=== PATIENT | female | born 1940 | race Caucasian/White ===

== ENCOUNTER 2017-02-16 06:40 | Observation (INO) | payer MEDICARE, OTHER ==
[~2017-02-16] VITALS: Ht 160 cm; Wt 54.2 kg
--- NOTE | ~2017-02-16 | ECHO ---
Transthoracic Echocardiography Report (TTE) Demographics Patient Name MARGO JAIN Date of Study 02/16/2017 A Patient Number [id number] Visit Number [id number] Date of 1940 Room Number G6336 Gender Female Number Age 76 year(s) Referring Josh Yuen MD Revenue Cycle Specialist Hattie Brumfield RD, Physician RVT, RDMS, OPERATIONS MANAGER Physician Interpreting Leana Michaels MD [employer] Physician Supervising Ordering Carlita Pompa MD, MD/MLP Physician Nurse Stress Manager [employer] Conclusions Contractility Score Summary Normal Left Ventricular contractility was noted. Summary The estimated left ventricular ejection fraction is 55-60%. Normal left ventricular chamber size, wall thickness and systolic function. No discernable wall motion abnormalities. Diastolic assessment reveals Grade II pseudonormal diastolic function . Mildly dilated RV with normal RV systolic function. Mild LA enlargement. Moderate RA enlargement. Moderate degenerative changes of the MV. Mild mitral regurgitation by color Doppler. The aortic valve is mildly sclerotic. Mild to moderate tricuspid regurgitation by color Doppler. There is mild pulmonary hypertension. The pulmonary pressure (RVSP) is 42 mmHg. Procedure Type of Study TTE procedure:2D Echocardiogram, M-Mode, Doppler , Color Doppler. Procedure Date Date: 02/16/2017 Start: 10:50 AM Study Location: ER Technical Quality: Good visualization Additional Indications:Chest Pain Appropriate Use Criteria: 9 Patient Status: STAT Rhythm: NSR HR: 75 bpm BP: 114/54 mmHg M-Mode/2D Measurements LV Diastolic Dimension: 3.86 cm LV Systolic Dimension: 2.31 cm LV Septum Diastolic: 0.9 cm LV PW Diastolic: 0.86 cm AO Root Dimension: 2.8 cm AV Cusp Separation: 1.9 cm RV Diastolic Dimension: 2.97 cm LA Dimension: 2.8 cm EF Estimated: 60 % LA volume: 57 ml RV Base: 3.9 cm LVOT: 2 cm RV Mid: 2.9 cm RV Length: 4.6 cm TAPSE: 3 cm TDI-S': 14 cm/s Doppler Measurements AV Peak Velocity: 1.38 m/s MV Peak E-Wave: 0.94 m/s AV Peak Gradient: 7.62 mmHg MV Peak A-Wave: 0.74 m/s LVOT Peak Velocity: 0.91 m/s MV E/A Ratio: 1.27 MV P1/2t: 73 msec TR Velocity:2.88 m/s TR Gradient:33.18 mmHg Estimated RVSP: 48 mmHg PV Peak Velocity: 0.64 m/s E' Septal Velocity: 0.09 m/s PV Peak Gradient: 1.63 mmHg E' Lateral Velocity: 0.09 m/s Estimated PASP: 48.18 mmHg A' Septal Velocity: 0.07 m/s Findings Left Ventricle Normal left ventricular chamber size, wall thickness and systolic function. No discernable wall motion abnormalities. Diastolic assessment reveals Grade II pseudonormal diastolic function . Right Ventricle Mildly dilated RV with normal RV systolic function. Left Atrium The left atrium is mildly dilated by LA volume index measurement. Right Atrium The right atrium is moderatetely dilated. There is a prominent Eustachian valve seen in the right atrium. Normal hepatic venous flow. IVC is plethoric, measures 1.7 cms, no inspiratory collapse. Mitral Valve Moderate degenerative changes of the MV. Minimal prolapse of the posterior leaflet of the MV. Mild mitral regurgitation by color Doppler. Aortic Valve The aortic valve is mildly sclerotic. Focal calcification of the left coronary cusp. There is no aortic regurgitation by color Doppler. Tricuspid Valve Mild to moderate tricuspid regurgitation by color Doppler. There is mild pulmonary hypertension. The pulmonary pressure (RVSP) is 15 mmHg. Pulmonic Valve The pulmonic valve is not well visualized. Mild PI. Pericardial Effusion Trivial posterior pericardial effusion. There is no echocardiographic evidence of cardiac tamponade. Miscellaneous Visualized portions of the aortic root and ascending aorta appear normal in size. Pleural Effusion No evidence of pleural effusion. Contractility Score LV regional wall motion:(0-Non visualized 1-Normal 2-Hypokinesis 3-Akinesis 4-Dyskinesis 5-Aneurysm) Signature dtt: PEDRO DENNY dtd: 02/16/17 1050 Physician Self Edit
--- NOTE | ~2017-02-16 | ER ---
PATIENT'S NAME: MARGO JAIN [facility] AGE: 76 Y [address] ROOM: [place] [address] LOCATION: GPCU ADMIT DATE: 02/16/2017 ER/Outpatient Report DISCHARGE DATE: FAMILY PHYSICIAN: Emily Moreno MD ATTENDING PHYSICIAN: ANA ROSA KOEHLER CHIEF COMPLAINT: Chest pain. HISTORY OF PRESENT ILLNESS: Ms. Jain reports that she woke up this morning not feeling well with some pressure in her chest that radiates through to her back. Maximal intensity she described it as a 4 or 5/10. The symptoms are dull. She has some associated subjective shortness of breath. She denies any history of high blood pressure, diabetes, or smoking. She has no former heart history. She takes medication for her thyroid. She states she is otherwise healthy. The patient has taken some aspirin this morning, 4 baby aspirin to be exact, prior to arrival. PAST MEDICAL HISTORY: Documented on the record and reviewed by me. SOCIAL HISTORY: Documented on the record and reviewed by me. MEDICATIONS: Documented on the record and reviewed by me. ALLERGIES: DOCUMENTED ON THE RECORD AND REVIEWED BY ME. REVIEW OF SYSTEMS: All systems are reviewed and negative except as noted in the HPI. PHYSICAL EXAMINATION: VITAL SIGNS: Blood pressure 146/67, pulse 70, respiratory rate is 20, temperature 97.8, SpO2 is 97% on room air. Pain is rated at 5/10. GENERAL: Age-appropriate female, elderly, and overall good appearance. Awake and alert. NEUROLOGIC: Awake and alert. GCS is 15. No focal deficits. No asymmetry. HEENT: Normocephalic, atraumatic. Eyes are PERRL. The oropharynx is clear. NECK: Supple. Trachea is midline. CHEST: Heart is regular rate and rhythm with no murmurs. LUNGS: Clear to auscultation bilaterally with no rhonchi, wheezes, or rales. PATIENT'S NAME: MARGO JAIN [facility] AGE: 76 Y [address] ROOM: [place] [address] LOCATION: GPCU ADMIT DATE: 02/16/2017 ER/Outpatient Report DISCHARGE DATE: FAMILY PHYSICIAN: Emily Moreno MD ATTENDING PHYSICIAN: ANA ROSA KOEHLER ABDOMEN: Soft, nontender, and nondistended. No rebound or guarding. BACK: Normal to inspection and palpation. No CVA tenderness. No spinal or paraspinal tenderness. EXTREMITIES: Warm and well perfused with no deformities or edema. SKIN: Clean, dry, and intact. No rashes or bruising. LABS AND X-RAYS: Chest x-ray with no acute findings per my review. No pneumothorax or infiltrates. EKG: Initial and repeat EKGs are all stable. No EKGs from prior to today for comparison. There is slight ST-segment elevation in V2 and III, not meeting criteria with no reciprocal changes. Very minimal ST-segment changes in the lateral leads on serial EKG. Initial and repeat troponin were obtained and are not elevated. Second CK-MB is slightly elevated from initial from 1.1 to 1.2. CBC with no other appreciable abnormalities. INR is less than 1. CMS with no appreciable abnormalities other than renal function with a creatinine of 1.2 and GFR of 44. Echocardiogram was done in the ER. IMPRESSION: Chest pain, requiring rule out. EMERGENCY DEPARTMENT COURSE: The patient was seen and evaluated as above. She received aspirin prior to arrival. She remained, otherwise, stable in the ER. GI cocktail may have helped some, though I believe the patient is minimizing to an extent. She was given 0.2 mg of nitroglycerin and that dropped her pressure and may or may not have helped her feel better. She remained stable and was given 2 mg of morphine which dropped her pressure more, but she felt like her chest pain got a lot better, but she stated it was still present. She was initiated with volume resuscitation. She was, otherwise, doing okay. Normal saline was given at 500 mL an hour which did improve her blood pressures. The patient did not have any side effects from the low blood pressure and her chest pain felt better. In any case, I felt as though Ms. Jain requires further definitive rule out. I discussed the case with Dr. Coon, assistant toddler teacher. She requested echo, repeat EKG and enzymes for the third time. The patient will be admitted to the Hospitalist Service under Dr. Koehler for further evaluation and treatment. Please see their dictations for their impressions and evaluation. PATIENT'S NAME: MARGO JAIN [facility] AGE: 76 Y [address] ROOM: G6336 [place] [address] [facility] ADMIT DATE: 02/16/2017 ER/Outpatient Report DISCHARGE DATE: FAMILY PHYSICIAN: Emily Moreno MD ATTENDING PHYSICIAN: ANA ROSA KOEHLER MD MARYLOU REINA/rejil /[id number] d: 02/16/172000 t: 02/22/17 0633, OUTPATIENT REPORT
--- NOTE | ~2017-02-16 | ESTC ---
Cardiac Perfusion Imaging Demographics Patient Name CRISTOBAL Rosenbaum Gender Female Patient Number [id number] Race Visit Number [id number] Ethnicity Corporate ID Room Number G6336 Accession Number [id number] Height 63 inches Date of 1940 Weight 117 pounds Leana Devries PRINT BUYER Interpreting Leana Michaels Date of study 02/17/2017 Physician Supervising /SEANP Leana Michaels NM Technologist Jakob Pelayo MD Ordering Physician Leana Michaels Stress forensic science technician Stress ECG Reading Leana Michaels Nurse Oskar Barlow Physician MD DANNIE Paz The procedure was explained in detail to the patient. Risks, complications and alternative treatments were reviewed. Written consent was obtained. Medications Reviewed with Patient prior to Procedure. Procedure Procedure Type: Nuclear Stress Test:Exercise, Cardiolite Stress Test Procedure Start time: 02/17/2017 08:30 Indications: Chest pain. Conclusions Summary Perfusion Images: The overall quality of the study is good. Left ventricular cavity is noted to be normal on the stress and normal on the rest images. There is no evidence of abnormal lung activity. The right ventricle is not visualized an cannot be assessed. Impression ECG portion of exercise stress test is clinically negative for ischemia by diagnostic criteria. The Lester Treadmill Score was 8. This corresponds to a low risk stress test. Myocardial perfusion imaging is essentially normal. Overall left ventricular systolic function was normal without regional wall motion abnormalities. Calculated LVEF is 80% and TID ratio is 1.2. There are no previous studies for comparison. Stress Protocols Resting ECG Normal sinus rhythm. Resting HR:77 bpm Resting BP:110/52 mmHg Pre-stress physical exam: Patient assessed by Dr. Coon prior to testing. Stress Protocol:Exercise Peak HR:125 bpm HR response: Appropriate Peak BP:138/58 mmHg BP response: Appropriate Predicted HR: 143 bpm HR/BP product:06604 % of predicted HR: 87 Test duration:08:06 min Reason for termination:Dyspnea Exercise effort:Good ECG Findings No ECG changes suggestive of ischemia. Arrhythmias No rhythm abnormality. Symptoms Shortness of breath. Stress Interpretation The electrocardiographic portion of the stress test was negative for ischemia. Blood pressure response was normal, heart rate response was normal for exertion. The Lester Treadmill Score was 8. This corresponds to a low risk stress test. Imaging Results Applied corrections - Motion correction applied High risk findings Summed scores - Summed stress score: 13 - Summed rest score: 8 - Summed difference score: 5 Stress ejection Ejection fraction:80 % EDV :65 ml ESV :13 ml Stroke volume :52 ml LV mass :94 gr Imaging Protocols Rest Stress Isotope:Tc99m Sestamibi IV Isotope: Tc99m Sestamibi IV Isotope dose:10.8 mCi Isotope dose:34.4 mCi Date:02/17/2017 06:59 Date:02/17/2017 08:37 Technique: SPECT Technique: Gated Supine SPECT Supine IV remains in place after procedure. Scan Time:45-60 minutes post Scan Time:45-60 minutes post injection injection Medical History Admission Data Admission date: 02/16/2017 Admission Time: 10:48 Hospital Status: Inpatient. Signatures dtt: PEDRO DENNY dtd: 02/17/17 0830 Physician Self Edit
--- NOTE | ~2017-02-16 | CON ---
PATIENT'S NAME: MARGO JAIN [facility] AGE: 76 Y [address] ROOM: [place] [address] LOCATION: GPCU ADMIT DATE: 02/16/2017 Consultation DISCHARGE DATE: FAMILY PHYSICIAN: Emily Moreno MD ATTENDING PHYSICIAN: ANA ROSA LEIJA DATE OF CONSULTATION: 02/16/2017 REQUESTING PROVIDER: Dr. Zazueta. REASON FOR CONSULTATION: Chest discomfort. HISTORY OF PRESENTING ILLNESS: The patient is a very pleasant 76-year-old female who is relatively healthy. Her only history is hypothyroidism. She also reports that she does not have any prior coronary artery disease or valve issues. The patient woke up at 5:30 a.m. with chest pain that was radiating to her left arm as well as her left jaw. This was persistent, and it was about 5 on a pain scale. The patient finally decided to come to the emergency room. She received 2 sublingual nitroglycerin that really did not help her chest pain much. She also got a GI cocktail that did not relieve her pain. However, morphine did help with her symptoms. She reports that on the worst intensity, it was 5 on the pain scale, and the pain did go to her arm as well as the left jaw. She does not report doing any physical exertion recently or straining her muscles. She is quite active usually and plays tennis, and she reports no significant complaints with exertion. She does not have any symptoms suggestive of sleep apnea. She does not have any symptoms of daytime fatigue, headache, daytime somnolence, snoring or apneic episodes. She does not have any dyspnea on exertion. No lower extremity edema, PND, or orthopnea. She does wake up in the middle of the night twice to urinate; however, she reports she gets good rest at night and able to go back to sleep. No stroke-like symptoms. The patient reports having a dull ache in her chest, and during interview, the chest pressure is gone; however, she does have minimal twinge in her back. REVIEW OF SYSTEMS: All review of systems discussed with the patient. Pertinent positives and PATIENT'S NAME: MARGO JAIN [facility] AGE: 76 Y [address] ROOM: [place] [address] LOCATION: GPCU ADMIT DATE: 02/16/2017 Consultation DISCHARGE DATE: FAMILY PHYSICIAN: Emily Moreno MD ATTENDING PHYSICIAN: ANA ROSA LEIJA negatives mentioned in the History of Presenting Illness. PAST MEDICAL HISTORY: Hypothyroidism. PAST SURGICAL HISTORY: Back surgery. SOCIAL HISTORY: The patient does not smoke. No alcohol or illicit drug abuse. FAMILY HISTORY: No premature coronary artery disease or sudden cardiac . HOME MEDICATIONS: She is on: 1. Synthroid, dose is not known. 2. Vitamin D. 3. Calcium. PHYSICAL EXAMINATION: VITAL SIGNS: Blood pressure 130/70, weight is 53 kg, pulse is 70s, respirations 14, afebrile, and O2 saturations are 97% on room air. GENERAL: The patient is alert and oriented, not in any apparent distress. HEENT: Head: Atraumatic. Eyes: Sclerae are white. No xanthelasmas. Mucous membranes moist. NECK: No JVD. HEART: S1 and S2. Regular rate and rhythm. No murmurs, gallops, or rubs. LUNGS: Clear to auscultation bilaterally. ABDOMEN: Soft. Bowel sounds positive. EXTREMITIES: No lower extremity edema or tenderness. MUSCULOSKELETAL: Good range of motion. Gait normal. SKIN: Warm and dry. LABORATORY DATA: Sodium 141, potassium 4, chloride 108, CO2 of 27, glucose 86, BUN 23, and creatinine 1.2. AST is 18 and ALT 18. GFR is 44. Magnesium 2.2. Three sets of cardiac isoenzymes are negative. CPK 38, CK-MB 0.8, and troponin less than 0.040. Hematology: WBC 7.6, H and H of 12.5 and 39, and platelets are 171. Echocardiogram: Grossly normal LV size and systolic function. Mild pulmonary hypertension. No significant valvular disease. PATIENT'S NAME: MARGO JAIN [facility] AGE: 76 Y [address] ROOM: [place] [address] LOCATION: GPCU ADMIT DATE: 02/16/2017 Consultation DISCHARGE DATE: FAMILY PHYSICIAN: Emily Moreno MD ATTENDING PHYSICIAN: ANA ROSA LEIJA EKG: Normal sinus rhythm. No ST changes on serial EKGs suggestive of ischemia or injury pattern. IMPRESSION AND PLAN: 1. Chest pain with atypical and typical features in a 76-year-old female concerning that her CP radiates to the jaw as well as left arm. Three sets of cardiac enzymes are negative. ECG w/out e/o ischemia. 2. Hypothyroidism. Continue home dose of Synthroid. 3. Mild pulmonary hypertension. She does not have any significant pulmonary issues. Chest x-ray grossly normal. There is no evidence of sleep apnea. Continue to monitor. 4. Renal insufficiency with a GFR of 44. Cautious IV hydration, and reassess renal function in the a.m. Unsure what her baseline creatinine is. At this time, given her typical and atypical features in the absence of ischemia on serial ECGs or troponins, I think the best option at this time is to proceed with non invasive ischemic workup given her age as well as being female and presence of typical features with the cp radiating to the arm and the jaw. We will get an exercise nuclear stress test. We will have her walk on the treadmill and evaluate her functional capacity and METS and risk stratify her. We will also get a fasting lipid profile in the morning and see if she needs to be on a statin. Thank you very much for allowing us to participate in the care of Mrs. Jain. PEDRO DENNY MD AT/modl /[id number] d: 02/16/17 182 t: 02/18/17 0902, CONSULTATION REPORT
--- NOTE | ~2017-02-16 | HP ---
PATIENT'S NAME: MARGO JAIN [facility] AGE: 76 Y [address] ROOM: [address] [address] LOCATION: GPCU ADMIT DATE: 02/16/2017 History & Physical DISCHARGE DATE: FAMILY PHYSICIAN: Emily Moreno MD ATTENDING PHYSICIAN: ANA ROSA LEIJA DATE OF SERVICE: 02/16/2017 CHIEF COMPLAINT: Chest pain. HISTORY OF PRESENT ILLNESS: This is a very pleasant 76-year-old female, who follows with Dr. Moreno with minimal past medical history, including only hypothyroidism, who takes Synthroid as well as calcium and vitamin D supplementation as her only home medications. The patient noted last evening, onset of generalized headache, not out of the usual types of headaches that she will have from time to time; however, this morning around 0530 hours, she did develop onset of chest pain which is across the tops of her shoulders bilaterally radiating across her back, described as achy and with associated left-sided jaw pain. She denies any recent diaphoresis, fevers, chills, nausea, vomiting, shortness of breath, abdominal pain, bowel or bladder concerns, or leg swelling. She is a very active 76-year-old female, plays tennis frequently, and only endorses occasional muscle cramps, but never anything involving her shoulders as such. She denies any recent strenuous activity that may have led to her current condition. In the emergency department, the patient was seen and evaluated, treated with GI cocktail as well as nitroglycerin with minimal improvement. Subsequently, she was given morphine with modest improvement in pain though pain remains persistent. Initial troponins were negative on two occasions. Third troponin will be collected shortly. EKGs are without ischemic changes. D- dimer has been negative at 0.32. Chest x-ray shows no acute findings and labs are otherwise largely unremarkable including CBC and CMP. PAST MEDICAL HISTORY: 1. Hypothyroidism. 2. Vitamin D deficiency. PAST SURGICAL HISTORY: Reviewed, no contributing history noted. FAMILY HISTORY: Mom had "thyroid problems." Daughter has type 1 diabetes. SOCIAL HISTORY: The patient is a nonsmoker and nondrinker. PATIENT'S NAME: MARGO JAIN [facility] AGE: 76 Y [address] [address] [address] [facility] AD[facility] DATE: 02/16/2017 History & Physical DISCHARGE DATE: FAMILY PHYSICIAN: Emily Moreno MD ATTENDING PHYSICIAN: ANA ROSA LEIJA ALLERGIES: NO KNOWN DRUG ALLERGIES. MEDICATIONS: Only notable for Synthroid, vitamin D, and calcium. REVIEW OF SYSTEMS: Complete review of systems was performed and negative except as noted above in the HPI. PHYSICAL EXAMINATION: VITAL SIGNS: Temperature 97.8, pulse is 70, respiratory rate is 20, blood pressure 146/67, and saturating well on room air. GENERAL: The patient is a very pleasant, elderly female, in no acute distress. Sitting comfortably in bed in the emergency department. HEENT: Head; normocephalic and atraumatic. Eyes; pupils equal, round, and reactive to light and accommodation. Extraocular muscles intact. No conjunctival injection or scleral icterus appreciated. Nose without rhinorrhea or other discharge. Mouth with moist mucous membranes. No lesions appreciated. NECK: Supple. No thyromegaly. No lymphadenopathy. No JVD or carotid bruit. The superior aspect of trapezius is nontender on palpation overlying the area of the described pain. CARDIOVASCULAR: Regular rate and rhythm with frequent extrasystoles consistent with premature atrial beats on telemetry. No murmurs, rubs, or gallops appreciated, 2+ pulses bilaterally in radial and dorsalis pedis. LUNGS: Respirations are clear to auscultation bilaterally. Normal effort, saturating well on room air. ABDOMEN: Soft, nontender, and nondistended. Normoactive bowel sounds. EXTREMITIES: No edema. No lesions noted on exposed skin. NEUROLOGIC: Alert and oriented, pleasant, cooperative, and voluntary movements of all limbs and normal strength bilaterally. LABORATORY DATA AND IMAGING STUDIES: CBC with white count of 7.6, hemoglobin 12.5, and platelets 171,000. CMP; sodium 141, potassium 4.0, chloride 108, bicarbonate 27, BUN 23, creatinine 1.2, glucose 86, and calcium 8.7. LFTs normal. Magnesium 2.2. D-dimer is negative at 0.32. Troponins are less than 0.04 x2. Chest x-ray with no acute findings. EKG shows no ischemic changes. ASSESSMENT: 1. Chest pain. Concerning for cardiac etiology versus musculoskeletal. We will admit to observation to complete trend of cardiac enzymes as symptoms have been present now for only approximately 5-1/2 hours. We will follow up echocardiogram and Cardiology recommendations as Dr. Coon PATIENT'S NAME: MARGO JAIN [facility] AGE: 76 Y [address] ROOM: [address] [place], [place] [address] [facility] AD[facility] DATE: 02/16/2017 History & Physical DISCHARGE DATE: FAMILY PHYSICIAN: Emily Moreno MD ATTENDING PHYSICIAN: ANA ROSA LEIJA was contacted by emergency department. We will treat supportively for pain with Tylenol as this may indeed represent musculoskeletal pain. However, it is atypical in that it is nontender to palpation and did involve radiation to the jaw prompting concern for cardiac etiology. The patient may warrant a stress test but will follow pending ongoing workup. 2. Probable mild acute kidney injury with creatinine of 1.2, though baseline uncertain, we will gently rehydrate with saline at 75 mL an hour, and recheck BMP in a.m. 3. Hypothyroidism. We will continue home Synthroid. No subjective evidence of over or under-replacement currently. 4. Vitamin D deficiency. We will continue home vitamin D and calcium. 5. Deep venous thrombosis prophylaxis. Heparin 5000 units subcutaneous t.i.d. 6. Code Status: The patient is a full code. Time spent on date of admission including [id number] evaluation of the patient and review of records was 25 minutes. MD MARIBEL MADDEN/aamir /[id number] D: [id number] T: [id number] HISTORY & PHYSICAL
--- NOTE | ~2017-02-16 | DS ---
PATIENT'S NAME: MARGO [facility]AIN [facility] AGE: 76 Y [address] ROOM: [address] [place], [place] [address] LOCATION: GPCU ADMIT DATE: 02/16/2017 Discharge Summary DISCHARGE DATE: 02/17/2017 FAMILY PHYSICIAN: Emily Moreno MD ATTENDING PHYSICIAN: Jaycob Koehler FINAL DIAGNOSES: 1. Chest pain, atypical. 2. Primary hypothyroidism. REASON FOR ADMISSION: The patient presented with left-sided chest pain and was evaluated in the emergency room. She was admitted to floor for further evaluation. LABORATORY DATA: On admission, sodium 141, potassium 4, chloride 108, CO2 of 27, BUN 23, creatinine 1.2, and mag 2.2. Second hospital day, creatinine was 0.9. Cholesterol was 103, HDL 61, triglycerides 61, and LDL 30. Cardiac enzymes, all four troponins were less than 0.04. White blood cell count was 7.6, hemoglobin 12.5, hematocrit 39.0, MCV 92.9, and platelet count 171. RADIOLOGY DATA: Chest x-ray was negative for vascular congestion or acute infiltrate. Cardiovascular reports, an echocardiogram read by Dr. Coon showed that her ejection fraction was 55% to 60%. She did not have any wall motion abnormalities. She had grade 2 pseudo normal diastolic dysfunction, mildly dilated right ventricle with normal right ventricle systolic function, mild left atrial enlargement, [id number] tricuspid regurg, mild pulmonary hypertension at 42 mmHg. HOSPITAL COURSE: The patient was admitted to PCU on an observation status. She was given IV fluids. She did not require IV heparin or nitroglycerin as her chest pain had resolved. She was seen by Dr. Coon cardiologic evaluation. The decision was made to monitor her cardiac enzymes. When all four sets of cardiac enzymes returned negative, Dr. Coon did feel that she would benefit from an exercise nuclear stress test. This was done on the morning of February 17. The patient during the time of the test and after initial presentation had remained pain free. She denies any shortness of breath. The stress test was read by Dr. COON and was reported to me that it was negative. The report was pending at the time of discharge. It was felt because the stress test was negative that the patient was stable for discharge with further evaluation as an outpatient. DISCHARGE INSTRUCTIONS: She is to follow up with Dr. Moreno in 3-5 days. MEDICATIONS: 1. Calcium with D1 tablet daily. PATIENT'S NAME: MARGO JAIN [facility] AGE: 76 Y [address] ROOM: [id number] [place], [place] [address] LOCATION: GPCU ADMIT DATE: 02/16/2017 Discharge Summary DISCHARGE DATE: 02/17/2017 FAMILY PHYSICIAN: Emily Moreno MD ATTENDING PHYSICIAN: Jaycob Koehler 2. Vitamin D 1000 units daily. 3. Levothyroxine 100 mcg daily. 4. Evista 60 mg daily. 5. Tylenol 650 mg daily as needed. 6. Amoxicillin 2000 mg 1 hour before dental appointments. 7. Multivitamin one every 48 hours and she was advised taken aspirin 81 mg daily. I did speak with Dr. Moreno regarding this discharge and I also updated the patient's son, who is a physician. CORI HUFF MD LAW/modl /[id number] CC: Emily Moreno MD d: 02/18/17 0136 t: 02/25/17 1949, DISCHARGE SUMMARY
[2017-02-16 07:10] LABS: BASOPHIL % 0.4 %; EOSINOPHIL # 0.2 K/uL (0.0-0.5); EOSINOPHIL % 2.4 %; HEMOGLOBIN 12.5 g/dL (10.0-15.0); IMMATURE GRANULOCYTE # 0.1 K/uL (0.0-0.3); IMMATURE GRANULOCYTE % 1.3 %; INR - (THERAPEUTIC) 0.96 (0.92-1.07); LYMPHOCYTE # 1.2 K/uL (0.8-4.0); LYMPHOCYTE % 15.8 %; MCH 29.8 pg (27.0-34.0); MCHC 32.1 gm/dL (32.0-36.5); MCV 92.9 fl (83.0-98.0); MONOCYTE # 0.9 K/uL (0.0-1.0); MPV 9.3 fl (9.4-12.4); NEUTROPHIL # (ANC) 5.2 K/uL (1.8-7.8); NEUTROPHIL % 68.1 %; NRBC % 0 /100WBC (0-0.00); PLATELET COUNT 171 K/uL (150-450); PROTIME 10.1 SECONDS (9.8-11.4); PTT 27 SECONDS (25-32); RDW-CV 13.2 % (11.9-14.6); WBC 7.6 K/uL (4.0-11.0)
[2017-02-16 07:23] LABS: ALBUMIN 3.6 gm/dL (3.5-5.0); ALK PHOS 60 IU/L (33-138); ALT 18 IU/L (12-78); AST 18 IU/L (10-40); BLOOD UREA NITROGEN 23 mg/dL (6-24); CALCIUM 8.7 mg/dL (8.5-10.5); CHLORIDE 108 mMol/L (96-110); CO2 27 mMol/L (22-32); CPK 52 IU/L (21-215); CREATININE 1.2 mg/dL (0.5-1.1); MAGNESIUM 2.2 mg/dL (1.8-2.6); SODIUM 141 mMol/L (135-145); TOTAL BILIRUBIN 0.8 mg/dL (0.0-1.5); TOTAL PROTEIN 7.2 g/dL (6.0-8.4)
[2017-02-16 09:22] LABS: CPK 43 IU/L (21-215)
[2017-02-16 10:53] LABS: CPK 38 IU/L (21-215)
[2017-02-16] MEDS ORDERED: LEVOTHROID (S100 MCG PO (14:12)
[2017-02-16] MEDS ORDERED: EVISTA60 MG PO (14:12)
[2017-02-16] MEDS ORDERED: AMOXICILLIN500 M1 PO (14:13)
[2017-02-16] MEDS ORDERED: CALCIUM 500 +1 EACH PO (14:14)
[2017-02-16] MEDS ORDERED: VITAMIN D1000 UNIT PO (14:15)
[2017-02-16] MEDS ORDERED: THERAGRAN-M1 TAB PO (14:15)
[2017-02-16] MEDS ORDERED: TYLENOL325 MG PO (14:15)
[2017-02-16] MEDS ORDERED: ASPIRIN LO-DOSE81 MG PO (14:17)
[2017-02-17 03:38] LABS: ANION GAP 9.8 (10.0-19.0); BLOOD UREA NITROGEN 14 mg/dL (6-24); CALCIUM 7.7 mg/dL (8.5-10.5); CHLORIDE 112 mMol/L (96-110); CO2 24 mMol/L (22-32); CPK 24 IU/L (21-215); CREATININE 0.9 mg/dL (0.5-1.1); POTASSIUM 3.8 mMol/L (3.7-5.1); SODIUM 142 mMol/L (135-145)
[2017-02-17] MEDS ORDERED: ASPIRIN EC81 MG PO (12:08)
== END 2017-02-17 13:00 | disposition disaster alternative care site (69) ==
LOC: GMED 06:40 → GPCU 10:48
PROVIDERS: Emergency Medicine; Internal Medicine Interventional Cardiology; ADMIT Internal Medicine
DX: R07.89 Other chest pain (principal); E03.9 Hypothyroidism, unspecified; I27.2 Other secondary pulmonary hypertension; N28.9 Disorder of kidney and ureter, unspecified; Z79.899 Other long term (current) drug therapy; Z79.2 Long term (current) use of antibiotics
CPT/HCPCS: A9500; J1644; J2270; J7030